=== PATIENT | male | born 1965 | race Caucasian/White ===

== ENCOUNTER 2019-08-25 05:22 | Day surgery (SDC) | payer OTHER ==
[2019-08-18 12:35] LABS: BASOPHILS # (AUTO) 0.1 X10'3 (0-0.2); EOSINOPHILS # (AUTO) 0.1 X10'3 (0-0.9); EOSINOPHILS % (AUTO) 1.2 % (0-6)
[2019-08-18 12:37] LABS: BASOPHILS % (AUTO) 0.7 % (0-1); LYMPHOCYTES # (AUTO) 1.6 X10'3 (1.1-4.8); LYMPHOCYTES % (AUTO) 17.1 % (21-51); MEAN CORPUSCULAR HEMOGLOBIN 30.7 PG (27.0-31.0); MEAN CORPUSCULAR HGB CONC 33.1 g/dL (33.0-36.5); MEAN CORPUSCULAR VOLUME 92.8 FL (78-98); MEAN PLATELET VOLUME 10.1 FL (7.4-10.4); MONOCYTES % (AUTO) 10.8 % (2-12); NEUTROPHILS # (AUTO) 6.5 X10'3 (1.8-7.7); NEUTROPHILS % (AUTO) 70.2 % (42-75); PRE OP HEMATOCRIT 47.8 % (42.0-52.0); PRE OP HEMOGLOBIN 15.8 g/dL (14.0-17.9); PRE OP PLATELET COUNT 243 X10'3 (140-440); RED BLOOD COUNT 5.15 X10'6 (4.70-6.10); RED CELL DISTRIBUTION WIDTH 13.8 % (11.5-14.5)
[2019-08-18 12:50] LABS: ALBUMIN 3.9 G/DL (3.4-5.0); ALBUMIN/GLOBULIN RATIO 0.9 (1.1-1.5); ALKALINE PHOSPHATASE 79 IU/L (46-116); BLOOD UREA NITROGEN 15 MG/DL (7-18); BUN/CREATININE RATIO 16.3 (5.4-32.0); CALCIUM 9.2 MG/DL (8.5-10.1); CHLORIDE 104 MMOL/L (99-107); CREATININE 0.92 MG/DL (0.60-1.10); PRE OP ALT 41 U/L (30-65); PRE OP ANION GAP 5 (8-16); PRE OP AST 20 U/L (10-37); PRE OP BILIRUB, TOTAL 0.4 MG/DL (0.0-1.0); PRE OP GLUCOSE 100 MG/DL (70-104); PRE OP POTASSIUM 4.1 MMOL/L (3.4-5.1); PRE OP SODIUM 136 MMOL/L (135-145); TOTAL CARBON DIOXIDE 27.3 MMOL/L (24-32); TOTAL PROTEIN 8.4 G/DL (6.4-8.2); eGFR 86 ML/MIN
[~2019-08-25] VITALS: Ht 185.4 cm; Wt 133.8 kg
[2019-08-25] VITALS (12 sets, daily range): BP systolic 113–141; BP diastolic 72–90
[~2019-08-25 05:22] MED LIST: NO HOME MEDS; ringers solution, lacted 1,000 ML IV SCH
[2019-08-25] MEDS ORDERED: famotidine 20mg tablet PO ONE (05:30)
[2019-08-25] MEDS ORDERED: LIDOcaine 1% (10mg/ml) 2ml vial ONE (05:53)
[2019-08-25] MEDS ORDERED: CLINDAMYCIN/D5W 900mg/50ml 50 ML IV ONE (06:20)
[2019-08-25] MEDS ORDERED: LIDOcaine 1%/PF 5ML 10 MG/ML VIAL ONE (07:12)
[2019-08-25] MEDS ORDERED: rocuronium 10mg/ml inj IV ONE (07:12)
[2019-08-25] MEDS ORDERED: desflurane 240ml liquid inh. IH ONE (07:12)
[2019-08-25] MEDS ORDERED: ROPIVAcaine 0.5% (5mg/ml) 30ml vial ONE (07:14)
[2019-08-25] MEDS ORDERED: MIDAZolam 5mg/5ml vial ONE (07:14)
[2019-08-25] MEDS ORDERED: fentaNYL/PF 50MCG/1 ML 2ML syringe ONE (07:14)
[2019-08-25] MEDS ORDERED: propofol inj 20 ML IV ONE (07:15)
[2019-08-25] MEDS ORDERED: ondansetron/PF 4mg/2ml inj ONE (07:53)
[2019-08-25] MEDS ORDERED: dexamethasone sod phosphate 4mg/ml inj. ONE (07:53)
[2019-08-25] MEDS ORDERED: ringers solution, lacted 1,000 ML IV SCH (08:14)
[2019-08-25] MEDS ORDERED: ROPIVAcaine 0.2%/PF PUMP/bolus 550 ML INTERSCALE SCH (08:14)
[2019-08-25] MEDS ORDERED: morphine 4 MG/ML inj SYRINge IV PRN (08:15)
[2019-08-25] MEDS ORDERED: ondansetron/PF 4mg/2ml inj IV PRN (08:15)
[2019-08-25] MEDS ORDERED: ROPIVAcaine 0.2% (10 MG/5 ML) BOLUS INJECTION INTERSCALE PRN (08:15)
[2019-08-25] MEDS ORDERED: proCHLORperazine 10 MG/2 ml inj IV PRN (08:15)
[2019-08-25] MEDS ORDERED: morphine 2 MG/ML inj. syringe IV PRN (08:15)
[2019-08-25] MEDS ORDERED: meperidine/PF 25mg/ml syringe IV PRN ×3 (08:15)
[2019-08-25] MEDS ORDERED: BUPIVAcaine/PF 2.5mg/ml (0.25%) 10ml vial ONE (08:25)
[2019-08-25] MEDS ORDERED: triamcinolone acetonide 40mg/ml inj ONE (08:25)
[2019-08-25] MEDS ORDERED: ketorolac trometh. 30mg/ml inj. ONE (09:51)
--- NOTE | 2019-08-25 10:06 | NUR ---
Received from OR via [facility], accompanied by Anesthesiologist DR COHEN and report given by Anesthesiologist. PT VERY DROWSY, DENIES PAIN, LEFT SHOULDER W/MIEKE SUBHA COVERING INCISION CDI, LEFT ARM IN IMMOBILIZER, FINGERS PWD. Addendum: 08/25/19 at 1033 by Juliane Calabrese RN Amended: Links added.
[2019-08-25] MEDS ORDERED: HYDROcodone/acetaminophen 10/325mg tab PO PRN (10:20)
--- NOTE | 2019-08-25 12:56 | NUR ---
PT ABLE TO AMBULATE W/O DIFFICULTY, PAIN IS 3/10 PT STATES HE IS COMFORTABLE, D/C INSTRUCTIONS GIVEN AND GONE OVER W/PT AND PTS WHOM VERBALIZED UNDERSTANDING. PT D/CD TO HOME VIA W/C TO PRIVATE VEHICLE W/O INCIDENT. Addendum: 08/25/19 at 1315 by Juliane Calabrese RN Amended: Links added.
== END 2019-08-25 12:56 | disposition home or self-care (01) ==
LOC: PAS 05:22
PROVIDERS: ATTEND Orthopaedic Surgery
DX: S46.012A Strain of muscle(s) and tendon(s) of the rotator cuff of left shoulder, initial encounter (principal); S42.262A Displaced fracture of lesser tuberosity of left humerus, initial encounter for closed fracture; E66.01 Morbid (severe) obesity due to excess calories; Z68.38 Body mass index [BMI] 38.0-38.9, adult; Z11.59 Encounter for screening for other viral diseases; Z88.8 Allergy status to other drugs, medicaments and biological substances; Z72.89 Other problems related to lifestyle; F17.290 Nicotine dependence, other tobacco product, uncomplicated; Z85.828 Personal history of other malignant neoplasm of skin; Z79.899 Other long term (current) drug therapy; Z98.890 Other specified postprocedural states; X58.XXXA Exposure to other specified factors, initial encounter; Y93.89 Activity, other specified; Y92.89 Other specified places as the place of occurrence of the external cause; Y99.8 Other external cause status
CPT/HCPCS: 23420; 23615; 29822; 36415; 64416; 80053; 82948; 85025; 93005; C1713; J1100; J1885; J2001; J2175; J2250; J2405; J2704; J2795; J3010; J3301; J3490; J7120; U0003; A4565; A4618; A6449; A7000